=== PATIENT | male | born 2000 | race Caucasian/White ===

== ENCOUNTER 2022-04-09 00:32 | Emergency (ER) | payer BC ==
[~2022-04-09] VITALS: Ht 182.9 cm; Wt 77.3 kg
[~2022-04-09 00:32] MED LIST: BACTRIM DS 8001 TAB PO; NOVOLOG 100U100 U/M1 SQ
[2022-04-09 00:47] VITALS: BP 116/72; TEMP 97.6
[2022-04-09] MEDS ORDERED: ALDACTONE 100M100 MG PO (00:51)
[2022-04-09] MEDS ORDERED: ENDOMETRIN100 MG VG (00:52)
[2022-04-09] MEDS ORDERED: PRISTIQ25 MG PO (00:52)
[2022-04-09] MEDS ORDERED: ESTRACE2 MG PO (00:52)
[2022-04-09 04:01] VITALS: PULSE 83
== END 2022-04-09 04:01 | disposition home or self-care (01) ==
LOC: COL.ER 00:32
DX: S71.111A Laceration without foreign body, right thigh, initial encounter (principal); R45.851 Suicidal ideations; Z23 Encounter for immunization; X78.1XXA Intentional self-harm by knife, initial encounter